=== PATIENT | female | born 1935 | race Caucasian/White ===

== ENCOUNTER 2021-11-17 13:44 | Emergency (ER) | payer MEDICARE ==
[2021-11-17] MEDS ORDERED: NORCO 5-325 TA1 EACH PO (15:36)
== END 2021-11-17 15:55 | disposition home or self-care (01) ==
LOC: FER 13:44
DX: S46.911A Strain of unspecified muscle, fascia and tendon at shoulder and upper arm level, right arm, initial encounter (principal); S09.90XA Unspecified injury of head, initial encounter; I10 Essential (primary) hypertension; W01.0XXA Fall on same level from slipping, tripping and stumbling without subsequent striking against object, initial encounter; Y92.239 Unspecified place in hospital as the place of occurrence of the external cause
CPT/HCPCS: 70450; 72125; 73030